=== PATIENT | female | born 1995 | race Caucasian/White ===

== ENCOUNTER 2019-02-21 05:15 | Inpatient (IN) ==
[2019-02-21 06:13] LABS: Pregnancy Test, Urine Negative (Negative)
[2019-02-21 06:23] LABS: Basophils # (auto) 0.04 K/uL (0-0.2); Basophils % (auto) 0.4 %; Eosinophils # (auto) 0.39 K/uL (0-0.5); Eosinophils % (auto) 3.7 %; Hematocrit (blood only) 40.3 % (37-47); Hemoglobin 13.7 g/dL (12.0-16.0); Immature Granulocytes # (auto) 0.03 K/uL (0.00-0.02); Immature Granulocytes % (auto) 0.3 %; Lymphocytes # (auto) 2.26 K/uL (1.2-3.4); Lymphocytes % (auto) 21.3 %; Mean Corpuscular Hemoglobin 28.5 pg (25-34); Mean Platelet Volume 10.1 fL (7.4-10.4); Monocytes # (auto) 0.77 K/uL (0.11-0.59); Monocytes % (auto) 7.2 %; Neutrophils # (auto) 7.14 K/uL (1.4-6.5); Neutrophils % (auto) 67.1 %; Platelet Count 220 K/uL (130-400); RDW Coefficient of Variation 13.2 % (11.5-14.5); RDW Standard Deviation 40.2 fL (36.4-46.3); White Blood Count 10.63 K/uL (4.8-10.8)
[2019-02-21 06:33] LABS: Amphetamines+Metham, Urine Neg (Neg); Barbiturates, Urine Neg (Neg); Benzodiazepine, Urine Neg (Neg); Cocaine, Urine Neg (Neg); MDMA (Ecstacy), Urine Pos (Neg); Methadone, Urine Neg (Neg); Opiate, Urine Neg (Neg); Phencyclidine, Urine Neg (Neg)
[2019-02-21 06:39] LABS: Appearance Urine Clear (Clear); Bacteria Urine Automated 1+ (Negative); Bilirubin Urine Negative (Negative); Blood Urine Negative (Negative); Color Urine Yellow; Epithelial Cell Urine Auto >30 /lpf (0-5); Glucose Urine UA Negative (Negative); Ketones Urine Trace (Negative); Leukocyte Esterase Urine 1+ (Negative); Nitrite Urine Negative (Negative); Protein Urine Negative (Negative); Specific Gravity Urine 1.026 (1.000-1.030); Urobilinogen Urine Negative (Negative); pH Urine 5.5 (4.5-7.5)
[2019-02-21 06:48] LABS: Acetaminophen < 2 ug/ml (10-30); Salicylate < 1.7 mg/dl (2.8-20)
[2019-02-21 06:53] LABS: Albumin Level 3.3 gm/dl (3.4-5.0); BUN Creatinine Ratio 10.9 (10-20); Calcium 8.8 mg/dl (8.5-10.1); Creatinine Clr Calc Pharmacy 95.4 ml/min; Est GFR (African American) 103.8; Est GFR (Non-African American) 89.6; Potassium 3.3 mmol/L (3.5-5.1)
[2019-02-21 07:03] LABS: Bilirubin,Total 0.3 mg/dl (0.2-1); Globulin 3.4 gm/dl (2.5-4.0); Thyroid Stimulating Hormone 2.17 uIu/ml (0.300-4.500); Total Protein 6.7 gm/dl (6.4-8.2)
--- NOTE | 2019-02-21 07:13 | Emergency Department Note ---
Entered by Chato Garrison acting as a scribe for History of Present Illness General Chief complaint: Overdose (Intentional) Stated complaint: OVERDOSE ON MEDICATION Time Seen by Provider: 02/21/19 05:39 Source: patient History of Present Illness Onset (ago): minute(s) 45 Location: head Pain Consistency: + other (an episode) Quality: + other (intentional overdose) Associated symptoms: + other (Positive for mild nausea. Negative for shakiness and abdominal pain.) The patient is a 23 year old female who presents to the emergency department with complaints of an episode of an intentional overdose occurring 45 minutes ago. The patient states that she recently got into an argument with her family. She notes that things escalated, and she reports that she took 15-20 tabs of Wellbutrin XL 45 minutes ago. The patient complains of mild nausea, but she denies any shakiness and abdominal pain. The patient states that she has a history of suicidal ideations, but she notes that she does not have a history of previous overdoses and suicide attempts. She reports that she does not use alcohol and drugs. Home Medications Home Medications Medication Instructions Recorded Confirmed Type bupropion HCl 150 mg PO DAILY 02/21/19 02/21/19 History drospirenone-ethinyl estradiol 1 tab PO DAILY 02/21/19 02/21/19 History Allergies Allergy/AdvReac Type Severity Reaction Status Date / Time No Known Allergies Allergy Unknown Verified 02/21/19 05:39 Past Med/Surg History Surgical History Hx of appendectomy (Resolved) Family History Other No significant family history Social History Preferred Language: Frisian marital status: single current occupational status: employed Feels Safe at Home: Yes Smoking Status: Current some day smoker Hx Alcohol Use: Yes Alcohol type: wine Alcohol Intake Frequency Comment: occasionally Hx Substance Use: No Review of Systems See HPI for pertinent positives & negatives. and A total of 10 systems reviewed and were otherwise negative Physical Exam Vital Signs Vital Signs - 24 hr 02/21/19 05:23 02/21/19 05:32 02/21/19 05:46 Temperature 36.7 C Temperature Source Oral Sepsis Recent Fever Within 48 Hours No Sepsis New/Unexplained Change in Mental Status No Sepsis Action Taken by Nursing No Action Required Pulse Rate 103 H Pulse Rate [Apical] 94 H Pulse Rhythm Regular Pulse Rhythm [Apical] Regular Respiratory Rate 18 19 Respiratory Effort / Characteristics Non-Labored Spontaneous Non-Labored Spontaneous Non-Labored Spontaneous Respiratory Depth Normal Normal Normal Respiratory Pattern Regular Regular Regular Blood Pressure 140/88 Blood Pressure [Right Arm] 145/104 H Blood Pressure Mean 105 Blood Pressure Mean [Right Arm] 117 Blood Pressure Position Sitting Pulse Oximetry 97 98 Oxygen Delivery Method Room Air Room Air 02/21/19 05:47 02/21/19 06:48 Temperature Temperature Source Sepsis Recent Fever Within 48 Hours Sepsis New/Unexplained Change in Mental Status Sepsis Action Taken by Nursing Pulse Rate Pulse Rate [Apical] 78 Pulse Rhythm Pulse Rhythm [Apical] Regular Respiratory Rate 16 Respiratory Effort / Characteristics Non-Labored Spontaneous Respiratory Depth Normal Respiratory Pattern Regular Blood Pressure Blood Pressure [Right Arm] 120/94 Blood Pressure Mean Blood Pressure Mean [Right Arm] 102 Blood Pressure Position Pulse Oximetry 98 97 Oxygen Delivery Method Room Air Room Air HEENT: Head - normocephalic and atraumatic Pupils are equal, round, and reactive to light. Extraocular eye muscles are intact, and sclera are anicteric. Nose - moist nasal mucosa without discharge. Mouth - moist buccal mucosa. Oropharynx is nonerythematous and there is no tonsillar exudate or edema noted. Neck: Supple; no thyromegaly or cervical lymphadenopathy Heart: Regular rhythm and tachycardic. There is a normal S1 and S2 with no murmurs, clicks, or gallops appreciated. Lungs: Clear to auscultation bilaterally with no wheezes, rales, or rhonchi. Abdomen: Soft, completely nontender, nondistended, with good bowel sounds. There are no palpable pulsatile masses or hepatosplenomegaly. There is no guarding, rigidity, or rebound noted. Extremities: No evidence of cyanosis, clubbing, or edema. There are easily palpable peripheral pulses. Skin: warm and dry with good turgor and no rashes. Psych: Tearful, admits to intentions of harming herself. Course 0541: The patient was evaluated in room B4. A complete history and physical exam was performed. An IV lock was initiated and labs were drawn as above. The patient was observed on the garment sewer hand and pulse oximeter. A twelve-lead EKG was obtained. 0556: Nursing spoke to poison control who noted that the patient would need to be admitted for 24 hours as she took the extended release Wellbutrin. 0609: I reevaluated and updated the patient. She remains tachycardic at this time 0704: Upon reevaluation, the patient is stable. I discussed the findings and the treatment plan with the patient. She expresses agreement and understanding. I spoke with Dr. Alcocer of the [facility]. The patient will be evaluated for further management. Consultations Consultation #1: I reviewed the patient's case with Dr. Alcocer - Hospitalist, [facility]. He will evaluate the patient for further management. Time: 07:04 Medical Decision Making Differential Diagnosis Differential diagnosis includes: suicide attempt, intentional overdose, and mood disorder. Medical Records Attestation: I reviewed the patient's medical records. Home Medications Current Medication List: was personally reviewed by me Laboratory Data Attestation: I reviewed the patient's lab results. Result diagrams: 02/21/19 06:14 02/21/19 06:14 Lab Results 02/21/19 02/21/19 02/21/19 Range/Units 05:35 05:35 05:35 WBC (4.8-10.8) K/uL RBC (4.2-5.4) M/uL Hgb (12.0-16.0) g/dL Hct (37-47) % MCV (80-100) fL MCH (25-34) pg MCHC (32-36) g/dL RDW Std Deviation (36.4-46.3) fL RDW Coeff of Sivan (11.5-14.5) % Plt Count (130-400) K/uL MPV (7.4-10.4) fL Immature Gran % (Auto) % Neut % (Auto) % Lymph % (Auto) % [place] % (Auto) % Eos % (Auto) % Baso % (Auto) % Immature Gran # (Auto) (0.00-0.02) K/uL Neut # (Auto) (1.4-6.5) K/uL Lymph # (Auto) (1.2-3.4) K/uL [place] # (Auto) (0.11-0.59) K/uL Eos # (Auto) (0-0.5) K/uL Baso # (Auto) (0-0.2) K/uL Sodium (136-145) mmol/L Potassium (3.5-5.1) mmol/L Chloride (98-107) mmol/L Carbon Dioxide (21-32) mmol/L Anion Gap (3-11) BUN (7-18) mg/dl Creatinine (0.6-1.2) mg/dl Est Cr Clr Drug Dosing ml/min Est GFR ( Amer) Est GFR (Non-Af Amer) BUN/Creatinine Ratio (10-20) Glucose (70-99) mg/dl Calcium (8.5-10.1) mg/dl Total Bilirubin (0.2-1) mg/dl AST (15-37) U/L ALT (12-78) U/L Alkaline Phosphatase (45-117) U/L Total Protein (6.4-8.2) gm/dl Albumin (3.4-5.0) gm/dl Globulin (2.5-4.0) gm/dl Albumin/Globulin Ratio (0.9-2) TSH (0.300-4.500) uIu/ml Urine Color Yellow Urine Appearance Clear (Clear) Urine pH 5.5 (4.5-7.5) Ur Specific [place] 1.026 (1.000-1.030) Urine Protein Negative (Negative) Urine Glucose (UA) Negative (Negative) Urine Ketones Trace H (Negative) Urine Blood Negative (Negative) Urine Nitrite Negative (Negative) Urine Bilirubin Negative (Negative) Urine Urobilinogen Negative (Negative) Ur Leukocyte Esterase 1+ H (Negative) Urine WBC (Auto) 10-30 H (0-5) /hpf Urine RBC (Auto) 5-10 H (0-4) /hpf U Hyaline Cast (Auto) 5-10 H (0-5) /lpf U Epithel Cells (Auto) >30 H (0-5) /lpf Urine Bacteria (Auto) 1+ H (Negative) Urine Test Negative (Negative) Salicylates (2.8-20) mg/dl Urine Opiates Screen Neg (Neg) Ur Methadone, Qual Neg (Neg) Acetaminophen (10-30) ug/ml Urine Barbiturates Neg (Neg) Ur Phencyclidine (PCP) Neg (Neg) U Amphetamin/Meth Scrn Neg (Neg) MDMA (Ecstasy) Screen Pos H (Neg) U Benzodiazepines Scrn Neg (Neg) Ur Cocaine Metabolite Neg (Neg) U Marijuana (THC) Screen Neg (Neg) Ethyl Alcohol mg/dL (0-3) mg/dl 02/21/19 02/21/19 02/21/19 Range/Units 06:14 06:14 06:14 WBC 10.63 (4.8-10.8) K/uL RBC 4.80 (4.2-5.4) M/uL Hgb 13.7 (12.0-16.0) g/dL Hct 40.3 (37-47) % MCV 84.0 (80-100) fL MCH 28.5 (25-34) pg MCHC 34.0 (32-36) g/dL RDW Std Deviation 40.2 (36.4-46.3) fL RDW Coeff of Sivan 13.2 (11.5-14.5) % Plt Count 220 (130-400) K/uL MPV 10.1 (7.4-10.4) fL Immature Gran % (Auto) 0.3 % Neut % (Auto) 67.1 % Lymph % (Auto) 21.3 % [place] % (Auto) 7.2 % Eos % (Auto) 3.7 % Baso % (Auto) 0.4 % Immature Gran # (Auto) 0.03 H (0.00-0.02) K/uL Neut # (Auto) 7.14 H (1.4-6.5) K/uL Lymph # (Auto) 2.26 (1.2-3.4) K/uL [place] # (Auto) 0.77 H (0.11-0.59) K/uL Eos # (Auto) 0.39 (0-0.5) K/uL Baso # (Auto) 0.04 (0-0.2) K/uL Sodium 141 (136-145) mmol/L Potassium 3.3 L (3.5-5.1) mmol/L Chloride 108 H (98-107) mmol/L Carbon Dioxide 27 (21-32) mmol/L Anion Gap 5.0 (3-11) BUN 10 (7-18) mg/dl Creatinine 0.91 (0.6-1.2) mg/dl Est Cr Clr Drug Dosing 95.4 ml/min Est GFR ( Amer) 103.8 Est GFR (Non-Af Amer) 89.6 BUN/Creatinine Ratio 10.9 (10-20) Glucose 114 H (70-99) mg/dl Calcium 8.8 (8.5-10.1) mg/dl Total Bilirubin 0.3 (0.2-1) mg/dl AST 11 L (15-37) U/L ALT 26 (12-78) U/L Alkaline Phosphatase 83 (45-117) U/L Total Protein 6.7 (6.4-8.2) gm/dl Albumin 3.3 L (3.4-5.0) gm/dl Globulin 3.4 (2.5-4.0) gm/dl Albumin/Globulin Ratio 1.0 (0.9-2) TSH 2.170 (0.300-4.500) uIu/ml Urine Color Urine Appearance (Clear) Urine pH (4.5-7.5) Ur Specific [place] (1.000-1.030) Urine Protein (Negative) Urine Glucose (UA) (Negative) Urine Ketones (Negative) Urine Blood (Negative) Urine Nitrite (Negative) Urine Bilirubin (Negative) Urine Urobilinogen (Negative) Ur Leukocyte Esterase (Negative) Urine WBC (Auto) (0-5) /hpf Urine RBC (Auto) (0-4) /hpf U Hyaline Cast (Auto) (0-5) /lpf U Epithel Cells (Auto) (0-5) /lpf Urine Bacteria (Auto) (Negative) Urine Test (Negative) Salicylates < 1.7 L (2.8-20) mg/dl Urine Opiates Screen (Neg) Ur Methadone, Qual (Neg) Acetaminophen < 2 L (10-30) ug/ml Urine Barbiturates (Neg) Ur Phencyclidine (PCP) (Neg) U Amphetamin/Meth Scrn (Neg) MDMA (Ecstasy) Screen (Neg) U Benzodiazepines Scrn (Neg) Ur Cocaine Metabolite (Neg) U Marijuana (THC) Screen (Neg) Ethyl Alcohol mg/dL (0-3) mg/dl 02/21/19 Range/Units 06:14 WBC (4.8-10.8) K/uL RBC (4.2-5.4) M/uL Hgb (12.0-16.0) g/dL Hct (37-47) % MCV (80-100) fL MCH (25-34) pg MCHC (32-36) g/dL RDW Std Deviation (36.4-46.3) fL RDW Coeff of Sivan (11.5-14.5) % Plt Count (130-400) K/uL MPV (7.4-10.4) fL Immature Gran % (Auto) % Neut % (Auto) % Lymph % (Auto) % [place] % (Auto) % Eos % (Auto) % Baso % (Auto) % Immature Gran # (Auto) (0.00-0.02) K/uL Neut # (Auto) (1.4-6.5) K/uL Lymph # (Auto) (1.2-3.4) K/uL [place] # (Auto) (0.11-0.59) K/uL Eos # (Auto) (0-0.5) K/uL Baso # (Auto) (0-0.2) K/uL Sodium (136-145) mmol/L Potassium (3.5-5.1) mmol/L Chloride (98-107) mmol/L Carbon Dioxide (21-32) mmol/L Anion Gap (3-11) BUN (7-18) mg/dl Creatinine (0.6-1.2) mg/dl Est Cr Clr Drug Dosing ml/min Est GFR ( Amer) Est GFR (Non-Af Amer) BUN/Creatinine Ratio (10-20) Glucose (70-99) mg/dl Calcium (8.5-10.1) mg/dl Total Bilirubin (0.2-1) mg/dl AST (15-37) U/L ALT (12-78) U/L Alkaline Phosphatase (45-117) U/L Total Protein (6.4-8.2) gm/dl Albumin (3.4-5.0) gm/dl Globulin (2.5-4.0) gm/dl Albumin/Globulin Ratio (0.9-2) TSH (0.300-4.500) uIu/ml Urine Color Urine Appearance (Clear) Urine pH (4.5-7.5) Ur Specific [place] (1.000-1.030) Urine Protein (Negative) Urine Glucose (UA) (Negative) Urine Ketones (Negative) Urine Blood (Negative) Urine Nitrite (Negative) Urine Bilirubin (Negative) Urine Urobilinogen (Negative) Ur Leukocyte Esterase (Negative) Urine WBC (Auto) (0-5) /hpf Urine RBC (Auto) (0-4) /hpf U Hyaline Cast (Auto) (0-5) /lpf U Epithel Cells (Auto) (0-5) /lpf Urine Bacteria (Auto) (Negative) Urine Test (Negative) Salicylates (2.8-20) mg/dl Urine Opiates Screen (Neg) Ur Methadone, Qual (Neg) Acetaminophen (10-30) ug/ml Urine Barbiturates (Neg) Ur Phencyclidine (PCP) (Neg) U Amphetamin/Meth Scrn (Neg) MDMA (Ecstasy) Screen (Neg) U Benzodiazepines Scrn (Neg) Ur Cocaine Metabolite (Neg) U Marijuana (THC) Screen (Neg) Ethyl Alcohol mg/dL < 3.0 (0-3) mg/dl ECG Data Attestation: I personally reviewed and interpreted this ECG as follows: Indication: toxicologic Rate (beats per minute): 86 Rhythm: normal sinus Findings: no PAC, no PVC, no ST depression and no ST elevation Additional Comments: QTC 442ms. Blood Pressure Blood Pressure Findings: Elevated blood pressure Blood Pressure Disposition: further management by hospitalist MDM Narrative The patient is a 23 year old female who presents to the emergency department with complaints of an episode of an intentional overdose occurring 45 minutes ago. The patient suffers from depression. She was seen here exactly 1 month ago with complaints of depression and suicidal thoughts. At that time, she was evaluated by the ED psychiatric manager of case management and decided that she would go home to pursue outpatient treatment. The patient has been seen by her PCP but has not yet been set up for outpatient psychiatric treatment. She describes having increased depression and had an argument with her family which pushed her to overdose on Wellbutrin with the intent to harm herself. Because of the extended release form of the medication, the patient will need admission to the medical service for observation as she is at risk for increased tachycardia and seizures. The patient is hemodynamically stable. I discussed the case with Dr. Alcocer and they will evaluate for further management. Once she is medically cleared, the patient will require inpatient psychiatric care for suicidal ideation and attempt. Impression & Plan Overdose, Depression Discharge Plan Visit Data Chief Complaint: Overdose (Intentional) Stated Complaint: OVERDOSE ON MEDICATION ED Provider: Shirley Arshad Discharge Problem: Overdose, Depression Patient Disposition: Admitted As Inpatient Forms Stand Alone Forms: My [facility] Prescriptions Prescriptions: No Action bupropion HCl 150 mg tablet extended release 24 hr 150 mg PO DAILY RF: 0 drospirenone-ethinyl estradiol 3-0.02 mg tablet 1 tab PO DAILY RF: 0 Referrals Referrals: Anneliese Nieves DO [Primary Care Provider] - Discharge Problem: Overdose Qualifiers: Encounter type: initial encounter Injury intent: intentional self-harm Qualified Code(s): T50.902A - Poisoning by unspecified drugs, medicaments and biological substances, intentional self-harm, initial encounter Depression Qualifiers: Depression Type: unspecified Qualified Code(s): F32.9 - Major depressive diso rder, single episode, unspecified The scribe's documentation has been prepared under my direction and personally reviewed by me in its entirety. I confirm that the note above accurately ref lects all work, treatment, procedures, and medical decision making performed by me.
--- NOTE | 2019-02-21 08:31 | History & Physical Report ---
Date of Service February 21, 2019 Assessment & Plan (1) Overdose: Joleen is a 23-year-old female with a past medical history of depression and anxiety, with prior suicidal ideation who presented to [facility] due to having intentionally taken 15-20 150 mg tablets of extended release Wellbutrin at approximately 5 AM. -admit to telemetry for monitoring -ED discussed case w/poison control -> recommend 24h monitoring given Wellbutrin is extended release. -monitor for seizures, prolonged Qtc and cardiac arrhythmia -> EKG in ED shows sinus rhythm, and QTc of 442 -suicide and seizure precautions, 1:1 observation -> 1mg IV Ativan prn seizures ordered -psych consult placed, can transfer to inpatient psych after 24h of monitoring -patient intermittently tachycardic to 120s, repeat EKG revealed sinus tachycardia - suspect related to wellbutrin -Ativan 0.5mg PO q4h prn anxiety -urine drug screen positive for MDMA (likely due to Wellbutrin) - otherwise negative Depression & Anxiety -hold Wellbutrin -psych consult as above - pt would likely benefit from an SSRI -pt has good support w/fiance -per discussion w/patient, her family seems to be her major source of stress Hypokalemia -potassium 3.3 on admission, will replete with 40 mEq of potassium chloride Positive UA -positive for leukocyte esterases, WBC, epithelial cells and bacteria. Urine cx ordered -pt does have a hx of UTIs, but is asymptomatic - will not treat Code status: FULL DVT Prophylaxis: Low risk, encourage ambulation Disposition: admit to telemetry for monitoring (2) Depression: (3) Anxiety: (4) Positive urinary cytology: (5) Hypokalemia: History of Present Illness Chief Complaint: Intentional Overdose Primary Care Provider: Anneliese Nieves DO Joleen is a 23-year-old female with a past medical history of depression and anxiety, with prior suicidal ideation who presented to [facility] due to having intentionally taken 15-20 150 mg tablets of extended release Wellbutrin at approximately 5 AM. 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 She states that she has a tumultuous relationship with her family, and that they have had several disagreements in the past. She does have a good relationship with her fiya, who she states is very supportive. She states that she took the Wellbutrin in a moment of haste, immediately realized what she had done, and told her fianc who then drove her to the hospital. She states that apart from nausea, she feels well. She did report one brief episode half an hour prior to the time of my examination where she had a 5-minute episode of chest pain, over the left side of her chest, associated with trouble breathing and feeling shaky. She states she was feeling particularly anxious at that time. She denies palpitations at that time. She states that she has not had chest pain since. She denies feeling dizzy or lightheaded. Of note, she is currently unwell with a viral URI, resulting in nasal congestion and a cough. She has had no fevers or chills. She has no prior history of any seizures. She states that her depression and anxiety are long-standing, and she has been struggling with this since her early teens. She stated that in the past, she has had suicidal ideation, with plans to harm herself. She was seen in the emergency department 1 month ago for this, however did not actively carry out on her plan at that time. She was meant to follow-up with your primary care provider and see a counselor and psychiatrist after her last ED visit, however she notes that there was a 3-month wait to see psychiatry. She states that her primary care provider started her on Wellbutrin, which she has been on for the last 10 to 15 days. She states that it has not made a difference for her anxiety and depression, and she reports having trouble sleeping and feeling jittery. PMHx: Depression, anxiety PSHx: Appendectomy Meds: Wellbutrin 150 mg, OCP Allergies: No known drug allergies SHx: Tried marijuana once last month, has not used it since. No other recreational drugs. Drinks alcohol once a month. Non-smoker. Allergies Allergy/AdvReac Type Severity Reaction Status Date / Time No Known Allergies Allergy Unknown Verified 02/21/19 05:39 Home Medications Home Medications Medication Instructions Recorded Confirmed Type bupropion HCl 150 mg PO DAILY 02/21/19 02/21/19 History drospirenone-ethinyl estradiol 1 tab PO DAILY 02/21/19 02/21/19 History Past Med/Surg History Medical History Contusion of foot (Acute) Depression (Chronic) Acute bronchitis (Acute) Urinary tract infection (Acute) Surgical History Hx of appendectomy (Resolved) Family History Other No significant family history Social History Preferred Language: Qatari Communication Ability: Effective Beliefs That Will Affect Care: None marital status: single Current Living Situation: Significant Other current occupational status: employed Other Information That Helps Us Care for You: No Feels Safe at Home: Yes Safety Concerns: Feels Safe At This Time Smoking Status: Current some day smoker Tobacco Type: cigarettes ; Cigarettes Per Day: FEW MONTH ; Hx Alcohol Use: Yes Alcohol type: wine Alcohol Intake Frequency Comment: occasionally Hx Substance Use: No Review of Systems Constitutional: no fever, no chills and no fatigue Ear, Nose, Mouth, Throat: + nasal congestion; no sore throat Respiratory: + cough; no dyspnea and no wheezing Cardiovascular: + chest pain; no radiating jaw, neck or arm pain, no palpitations, no lightheadedness, no syncope, no edema and no calf pain Gastrointestinal: + nausea; no abdominal pain and no vomiting Genitourinary: no dysuria, no urinary frequency and no urinary urgency Psychiatric: + depression and + anxiety; no suicidal ideation Physical Exam Constitutional: WD/WN, vitals as above healthy appearing Eyes: PERRL, conjunctivae normal, anicteric sclerae ENMT: external ear and nose normal, oropharynx normal Respiratory: normal respiratory effort, lungs clear to auscultation Cardiovascular: RRR, no murmur, no edema Gastrointestinal (Abdomen): normal bowel sounds, soft, nontender, no hepatosplenomegaly Skin: no rashes, warm and dry Neurologic: Cranial nerves 2-12 grossly normal Power 5/5 in UE and LE Coordination intact Psychiatric: Orientation: alert and oriented x 3 Apperance: appropriately dressed, appropriately groomed and appeared stated age Eye Contact: good eye contact Speech: normal rate/rhythm/volume of speech Affect: + tearful affect Thought Process: clear/coherent thought process Suicidal Thoughts: denies suicidal thoughts Insight: excellent insight Judgement: good judgement Results & Data Vital Signs (Past 12 Hours) Vital Signs Temp Pulse Pulse Resp BP BP Pulse Ox 02/21/19 08:12 93 H 16 137/89 97 02/21/19 07:30 93 H 18 108/76 99 02/21/19 07:00 103 H 18 120/87 99 02/21/19 06:48 78 16 120/94 97 02/21/19 05:47 98 02/21/19 05:46 94 H 19 145/104 H 98 02/21/19 05:23 36.7 C 103 H 18 140/88 97 Code Status & VTE Plan VTE Prophylaxis Plan VTE Prophylaxis will be ordered: No Supervising Physician Co-Signing Physician Notes I personally examined the patient and verified all andersen points of history and exam, discussed case, and agree with decision making with Dr Rosa. anxious, had family issues this AM. took excess wellbutrin - immediately regretted and came to hospital for help. discussed life stressors vitals noted, anxious, no pain or respiratory distress. heent nc at mmm. breathing unlabored no accessory muscles. skin no rashes no pallor or icterus wellbutrin overdose - supportive care, telemetry, seizure precautions, time. (late addendum, persistently tachycardic, still appearing sinus. no delta wave - will give small amount of metoprolol given persistent 140's type ranges). p sych consult otherwise as above PG Care Time/CCT Total # of Minutes Spent Total Time Spent with Patient: Total time spent is greater than 50% in coordination of care (as documented) at patient's floor/unit and/or counseling patient: Resident Activity Tracking Resident Involvement: Resident Care Provided Care Provided: Adult Hospital Medicine (1) Depression Depression Type: unspecified Qualified Code(s): F32.9 - Major depressive disorder, single episode, unspecified (2) Overdose Encounter type: initial encounter Injury intent: intentional self-harm Qualified Code(s): T50.902A - Poisoning by unspecified drugs, medicaments and biological substances, intentional self-harm, initial encounter
[2019-02-21] MEDS ORDERED: LORazepam 0.5 MG TAB PO STA (08:54)
[2019-02-21] MEDS ORDERED: POTASSIUM CHLORIDE 20 MEQ TABCR PO ONE (09:38)
[2019-02-21] MEDS ORDERED: ACETAMINOPHEN 325 MG TAB PO PRN (09:38)
[2019-02-21] MEDS ORDERED: LORazepam 0.5 MG TAB PO PRN (09:38)
[2019-02-21] MEDS ORDERED: LORazepam 1 MG/2 ML VIAL IV PRN (09:38)
[2019-02-21] MEDS ORDERED: FAMOTIDINE 20 MG TAB PO PRN (11:57)
[2019-02-21] MEDS: PROMETHAZINE HCL 12.5 MG in SODIUM CHLORIDE 0.9% 50 ML IV PRN ×2 (12:29→17:24)
--- NOTE | 2019-02-21 13:35 | Psychiatric Consultation ---
Date of Consultation February 21, 2019 Impression / Recommendations Impression 23 yo female with no prior suicide attempts who presents with atypical depressive response to Wellbutrin and impulsive suicide attempt. There is a family history of bipolar disorder but she does not meet criteria. 1. continue 1-on-1 pending medical clearance, inpatient psychiatric hospitalization is recommended, patient should not be allowed to leave the hospital AMA. Patient and her boyfriend are currently agreeable to inpatient stay and expressed preference for [facility]. 2. agree with prn benzo for myoclonus from Wellbutrin Risk Factors Assessment Do You Have Access To A Gun?: No Psych History Identifying Data 23 yo female lives with boyfriend in [place], came to ED this am after ingesting 15-10 Wellbutrin 150 mg XL around 5 am. Chief Complaint "I'm scared, pretty uncomfortable". History of Present Illness On presentation to the ED she states she's been stressed about her mood and wanting to attend nursing school but being unable to due to financial difficulties. The trigger today was an argument she had with her mother. She impulsively took the pills as in the moment didn't want to live but immediately felt regretted it, told boyfriend, and came to the ED. She developed some nausea and chest discomfort. She reconfirmed that she has no prior history of seizures. She denies previous attempts but she had SI and was seen in ED 1 month ago and is waitlisted for psychiatry. Her boyfriend of 9 years states that in past 3 months (on Wellubtrin) she's seemed to have more mood swings from very happy to very low, sometimes irritable at work (per patient). She has been waking up more at night but notes low energy. They deny symptoms of davie. Past Psychiatric History Previous Psych History: states none, I believe she was seen in consultation at [facility] as a teen as Dr. Reno treated her brothers, records not available given remote date, may have refused medication at that time. Current Psychiatric Diagnosis: major depressive disorder, generalized anxiety Outpatient Services: none Previous Psych Admissions: none Do You Have Access To A Gun?: No History of Previous Suicide Attempt: No Past Medication Trials: denied Allergies Allergy/AdvReac Type Severity Reaction Status Date / Time No Known Allergies Allergy Unknown Verified 02/21/19 05:39 Home Medications Home Medications Medication Instructions Recorded Confirmed Type bupropion HCl 150 mg PO DAILY 02/21/19 02/21/19 History drospirenone-ethinyl estradiol 1 tab PO DAILY 02/21/19 02/21/19 History Family History mother bipolar, brother ADHD, another brother autism Substance Abuse History used MJ once a month ago, no other occasional drink with boyfriend Personal History Living Arrangements: Apartment Highest Grade Completed: High School Graduate (started nursing school) 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 Other Number Of Children: 0 Beliefs That Will Affect Care: None History of Legal Problems: denied Psychological Trauma History Comment: denied, reports recent move was stressful. Patient History Medical History Contusion of foot (Acute) Depression (Chronic) Acute bronchitis (Acute) Urinary tract infection (Acute) Surgical History Hx of appendectomy (Resolved) Family History Other No significant family history Social History Preferred Language: Hungarian Communication Ability: Effective Beliefs That Will Affect Care: None marital status: single Current Living Situation: Significant Other current occupational status: employed Other Information That Helps Us Care for You: No Feels Safe at Home: Yes Safety Concerns: Feels Safe At This Time Smoking Status: Current some day smoker Tobacco Type: cigarettes ; Cigarettes Per Day: FEW MONTH ; Hx Alcohol Use: Yes Alcohol type: wine Alcohol Intake Frequency Comment: occasionally Hx Substance Use: No Physical Exam Psychiatric: Orientation: alert Apperance: + disheveled Eye Contact: + poor eye contact Motor Behavior: + tremor (and myoclonus related to Wellbutrin OD) Speech: normal rate/rhythm/volume of speech Affect: + depressed affect Mood: + depressed mood Thought Process: goal directed thought process Thought Content: reality based without delusions Suicidal Thoughts: denies suicidal thoughts and denies suicidal plan Homicidal Thoughts: denies homicidal thoughts and denies homicidal plan Hallucinations: no auditory hallucinations and no visual hallucinations Cognition: attention grossly intact and language grossly intact Estimated Intelligence: average estimated intelligence Insight: + limited insight Judgement: + limited judgement Vital Signs (Past 24 Hours): Last Vital Signs Temp 36.8 C 02/21/19 11:55 Pulse 133 H 02/21/19 11:55 Resp 18 02/21/19 11:55 BP 123/85 02/21/19 11:55 Pulse Ox 95 02/21/19 11:55 Review of Systems All systems reviewed & are unremarkable except as noted in HPI & below Results & Data Medications Administered Promethazine HCl 12.5 mg/ (Sodium Chloride) 50.5 mls @ 202 mls/hr IV Q4H PRN PRN Reason: Nausea And Vomiting Stop: 03/23/19 11:56 Last Infusion: 02/21/19 12:44 Dose: 0 mls/hr Documented by: [id number] Admin: 02/21/19 12:29 Dose: 202 mls/hr Documented by: [id number]
[2019-02-21] MEDS ORDERED: METOPROLOL TARTRATE 25 MG TAB PO SCH (19:45)
[2019-02-21] MEDS: DROSPIRENONE PO SCH (19:46)
[2019-02-21] MEDS: ETHINYL ESTRADIOL PO SCH (19:46)
--- NOTE | 2019-02-22 06:52 | Family Medicine Progress Note ---
Date of Service February 22, 2019 Assessment & Plan (1) Overdose: Joleen is a 23-year-old female with a past medical history of depression and anxiety, with prior suicidal ideation who presented to [facility] due to having intentionally taken 15-20 150 mg tablets of extended release Wellbutrin at approximately 5 AM. -admit to telemetry for monitoring -ED discussed case w/poison control -> recommend 24h monitoring given Wellbutrin is extended release. -monitor for seizures, prolonged Qtc and cardiac arrhythmia -> EKG in ED shows sinus rhythm, and QTc of 442 -suicide and seizure precautions, 1:1 observation -> 1mg IV Ativan prn seizures ordered -psych consult placed, can transfer to inpatient psych after 24h of monitoring -patient intermittently tachycardic to 120s, repeat EKG revealed sinus tachycardia - suspect related to wellbutrin -Ativan 0.5mg PO q4h prn anxiety -urine drug screen positive for MDMA (likely due to Wellbutrin) - otherwise negative Depression & Anxiety -hold Wellbutrin -psych consult as above - pt would likely benefit from an SSRI -pt has good support w/fiance -per discussion w/patient, her family seems to be her major source of stress Hypokalemia -potassium 3.3 on admission, will replete with 40 mEq of potassium chloride Positive UA -positive for leukocyte esterases, WBC, epithelial cells and bacteria. Urine cx ordered -pt does have a hx of UTIs, but is asymptomatic - will not treat Code status: FULL DVT Prophylaxis: Low risk, encourage ambulation Disposition: admit to telemetry for monitoring (2) Depression: (3) Anxiety: (4) Positive urinary cytology: (5) Hypokalemia: Physical Exam Constitutional: WD/WN, vitals as above healthy appearing Respiratory: normal respiratory effort, lungs clear to auscultation Cardiovascular: RRR, no murmur, no edema Gastrointestinal (Abdomen): normal bowel sounds, soft, nontender, no hepatosplenomegaly Skin: no rashes, warm and dry Psychiatric: Orientation: alert and oriented x 3 Results & Data Vital Signs (Past 12 Hours) Vital Signs Temp Pulse Pulse Resp BP Pulse Ox 02/22/19 03:05 36.5 C 106 H 20 103/51 L 98 02/22/19 00:04 105 H 02/21/19 23:36 37.0 C 110 H 18 124/89 97 02/21/19 19:03 36.5 C 146 H 20 126/84 97 PG Care Time/CCT Total # of Minutes Spent Total Time Spent with Patient: Total time spent is greater than 50% in coordination of care (as documented) at patient's floor/unit and/or counseling patient: Resident Activity Tracking Resident Involvement: Resident Care Provided Care Provided: Adult Hospital Medicine (1) Overdose Encounter type: initial encounter Injury intent: intentional self-harm Qualified Code(s): T50.902A - Poisoning by unspecified drugs, medicaments and biological substances, intentional self-harm, initial encounter (2) Depression Depression Type: unspecified Qualified Code(s): F32.9 - Major depressive disorder, single episode, unspecified
[2019-02-22 07:11] LABS: BUN Creatinine Ratio 9.8 (10-20); Calcium 8.8 mg/dl (8.5-10.1); Creatinine Clr Calc Pharmacy 99.3 ml/min; Est GFR (African American) 121.3; Est GFR (Non-African American) 104.7; Potassium 3.9 mmol/L (3.5-5.1)
--- NOTE | 2019-02-22 07:56 | Discharge Summary ---
Date of Service February 22, 2019 Admission HPI Per Admitting Provider Joleen is a 23-year-old female with a past medical history of depression and anxiety, with prior suicidal ideation who presented to [facility] due to having intentionally taken 15-20 150 mg tablets of extended release Wellbutrin at approximately 5 AM. 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 She states that she has a tumultuous relationship with her family, and that they have had several disagreements in the past. She does have a good relationship with her fianc, who she states is very supportive. She states that she took the Wellbutrin in a moment of haste, immediately realized what she had done, and told her fianc who then drove her to the hospital. She states that apart from nausea, she feels well. She did report one brief episode half an hour prior to the time of my examination where she had a 5-minute episode of chest pain, over the left side of her chest, associated with trouble breathing and feeling shaky. She states she was feeling particularly anxious at that time. She denies palpitations at that time. She states that she has not had chest pain since. She denies feeling dizzy or lightheaded. Of note, she is currently unwell with a viral URI, resulting in nasal congestion and a cough. She has had no fevers or chills. She has no prior history of any seizures. She states that her depression and anxiety are long-standing, and she has been struggling with this since her early teens. She stated that in the past, she has had suicidal ideation, with plans to harm herself. She was seen in the emergency department 1 month ago for this, however did not actively carry out on her plan at that time. She was meant to follow-up with your primary care provider and see a counselor and psychiatrist after her last ED visit, however she notes that there was a 3-month wait to see psychiatry. She states that her primary care provider started her on Wellbutrin, which she has been on for the last 10 to 15 days. She states that it has not made a difference for her anxi ety and depression, and she reports having trouble sleeping and feeling jittery. PMHx: Depression, anxiety PSHx: Appendectomy Meds: Wellbutrin 150 mg, OCP Allergies: No known drug allergies SHx: Tried marijuana once last month, has not used it since. No other recreational drugs. Drinks alcohol once a month. Non-smoker. Admission Exam Per Admitting Provider Constitutional: WD/WN, vitals as above healthy appearing Eyes: PERRL, conjunctivae normal, anicteric sclerae ENMT: external ear and nose normal, oropharynx normal Respiratory: normal respiratory effort, lungs clear to auscultation Cardiovascular: RRR, no murmur, no edema Gastrointestinal (Abdomen): normal bowel sounds, soft, nontender, no hepatosplenomegaly Skin: no rashes, warm and dry Neurologic: Cranial nerves 2-12 grossly normal Power 5/5 in UE and LE Coordination intact Psychiatric: Orientation: alert and oriented x 3 Apperance: appropriately dressed, appropriately groomed and appeared stated age Eye Contact: good eye contact Speech: normal rate/rhythm/volume of speech Affect: + tearful affect Thought Process: clear/coherent thought process Suicidal Thoughts: denies suicidal thoughts Insight: excellent insight Judgement: good judgement Principal Diagnosis Wellbutrin Overdose Discharge Exam Constitutional WD/WN, vitals as above healthy appearing Respiratory normal respiratory effort, lungs clear to auscultation Cardiovascular RRR, no murmur, no edema Gastrointestinal (Abdomen) normal bowel sounds, soft, nontender, no hepatosplenomegaly Psychiatric Orientation: alert and oriented x 3 Discharge Data Allergies Allergy/AdvReac Type Severity Reaction Status Date / Time No Known Allergies Allergy Unknown Verified 02/21/19 05:39 Consultations 02/21/19 09:38 Consult Psychiatry Routine Hospital Course (1) Overdose: Joleen is a 23-year-old female with a past medical history of depression and anxiety, with prior suicidal ideation who presented to [facility] due to having intentionally taken 15-20 150 mg tablets of extended release Wellbutrin at approximately 5 AM. -admitted to telemetry for monitoring -drug screen positive for MDMA (likely due to Wellbutrin) - otherwise negative -case was discussed w/poison control -> recommended 24h monitoring for seizures, prolonged qtc and cardiac arrhythmias given Wellbutrin is extended release. -> EKG in ED showed sinus rhythm, and QTc of 442 -no seizure like activity noted -patient was intermittently tachycardic to 120s, repeat EKG revealed sinus tachycardia - suspect related to wellbutrin -> improved with ativan 0.5mg prn and one dose of 12.5mg of metoprolol tartrate -given patient was stable for >24h under observation, she was deemed medically stable for transfer to inpatient psych unit Depression & Anxiety -d/c Wellbutrin -inpatient psych as above -pt has good support w/fiance -per discussion w/patient, her family seems to be her major source of stress Hypokalemia -potassium 3.3 on admission, repleted Positive UA -positive for leukocyte esterases, WBC, epithelial cells and bacteria. -pt does have a hx of UTIs, but is asymptomatic - will not treat (2) Depression: (3) Anxiety: (4) Positive urinary cytology: (5) Hypokalemia: Total Time Total Time Spent Total Time Spent (In Minutes): 30 Discharge Plan Discharge Items Patient Disposition: Transfer Behavioral Health Fac Reason For Visit: INTENTIONAL MEDICATION OVERDOSE Discharge Diagnosis: Wellbutrin Overdose Discharge Goals: Improve disease control and Improve function Activity: Resume your previous activity Non-emergency contact: Primary Care Provider Call non-emergency contact if: you have any medication questions, your symptoms worsen and you have a fever Follow-up/Referrals: Anneliese Nieves DO [Primary Care Provider] - Diet: Regular Addtl Provider Instructions: elba Goodrich were seen at [facility] for monitoring after taking extra tablets of your Wellbutrin. We monitored you for over 24 hours and feel that you are safe to be discharged from a medical standpoint. Please stop taking your Wellbutrin. The psychiatry team will work with you to find a treatment regimen that works for you. Please follow up with your primary care provider. Good luck with everything - we have no doubts you will do really well at nursing school! If you have episodes in the future where you feel overwhelmed or feel like you want to harm yourself, please seek medical attention. Prescriptions: Continued drospirenone-ethinyl estradiol 3-0.02 mg tablet 1 tab PO DAILY RF: 0 Discontinued bupropion HCl 150 mg tablet extended release 24 hr 150 mg PO DAILY RF: 0 No Action bupropion HCl [Wellbutrin XL] 150 mg Tablet Extended Release 24 Hr 150 mg PO QAM RF: 0 omeprazole 40 mg Capsule,Delayed Release(Dr/Ec) 40 mg PO DAILY RF: 0 sucralfate 1 gram Tablet 1 g PO ACHS RF: 0 Stand-Alone Forms: [facility] Discharge Orders: Discharge Order (Routine); Ordered 02/22/19 Ordered By: Isrrael Coleman Admission Data Admit Date/Time: 02/21/19 08:24 Attending Provider: Chetan Santamaria Admit Provider: Chetan Santamaria Primary Care Provider: Anneliese Nieves Other Providers: Edie Reno Service: Telemetry Other Interventions: Discharge Summary Assessment (RN) Last Done: 02/22/19 12:01 DC Date/Time DO NOT enter until pt leaves facility: 02/22/19 12:23 Supervising Physician Co-Signing Physician Notes I personally examined the patient and verified all andersen points of history and exam, discussed case, and agree with decision making with Dr Coleman. Feeling better. Just anxious. Is ready to go to inpatient psych. Vitals noted, in general she is awake and alert pleasant no distress. HEENT normocephalic atraumatic mucous membranes moist. Breathing unlabored no accessory muscle use good effort. Skin shows no rashes no pallor or icterus. Mental status she is pleasant but tearful. Mildly anxious. Wellbutrin overdosenow doing much better. No seizures. Was briefly tachycardic managed with a very low dose of metoprolol. Stable for inpatient psych. Offered empathy and support. Resident Activity Tracking Resident Involvement: Resident Care Provided Care Provided: Adult Hospital Medicine
[2019-02-22] MEDS: DROSPIRENONE PO SCH (10:23)
[2019-02-22] MEDS: ETHINYL ESTRADIOL PO SCH (10:23)
== END 2019-02-22 12:23 | DRG 918 ==
LOC: ED 05:15 → 2S 08:24

== ENCOUNTER 2019-02-22 12:28 | Inpatient (IN) ==
[2019-02-22] MEDS ORDERED: MAGNESIUM HYDROXIDE SUSP 30 ML UDC PO PRN (12:48)
[2019-02-22] MEDS ORDERED: BISMUTH SUBSALICYLATE PER ML OMNICELL CHARGE PO PRN (12:48)
[2019-02-22] MEDS ORDERED: SODIUM CHLORIDE 0.65% NA SOLN 45 ML (OCEAN) PRN (12:48)
[2019-02-22] MEDS ORDERED: ALUMINUM/MAGNESIUM SUSP 30 ML UDC PO PRN (12:48)
[2019-02-22] MEDS ORDERED: ACETAMINOPHEN 325 MG TAB PO PRN (12:48)
--- NOTE | 2019-02-22 13:02 | History & Physical ---
Date of Service February 22, 2019 Impression / Recommendations (1) Overdose: 02/22 -patient reports intentional, impulsive overdose on bupropion XL in a suicide attempt, in the context of an argument with her mother. She has medically stabilized after treatment on telemetry. -Work on healthy coping skills, communication, and conflict resolution, as the patient identifies these as her primary needs. -Work on discharge safety plan, and hold family meeting with boyfriend to discuss. Given persistent suicidal ideation and now in attentional overdose, would recommend basic safety measures including that all medications in the home are locked and secured, and confirm with boyfriend that firearms are secure and the patient cannot access them. Encounter type: initial encounter Injury intent: intentional self-harm Qualified Code(s): T50.902A - Poisoning by unspecified drugs, medicaments and biological substances, intentional self-harm, initial encounter Present on Admission?: Yes (2) Depression: 02/22 -discussed diagnosis, including that although the patient does not meet criteria for hypomania or davie, she does seem to have an atypical depression and felt more meza on sertraline and bupropion XL (although thinks she had a good response to them when she took both of these medications as a teenager). She does have a family history of bipolar disorder in her mother. -Wellbutrin discontinued on the medical floor status post overdose. Will not resume, as worsened mood. -Discussed other medication options, including a trial of a different SSRI such as escitalopram, or a trial of a mood stabilizer (specifically discussed lamotrigine). At this time, she is not sure whether she wants to try another medication, but we will continue to discuss and educate. -Patient psychiatric care and therapy. Depression Type: unspecified Qualified Code(s): F32.9 - Major depressive disorder, single episode, unspecified Present on Admission?: Yes (3) Anxiety: 02/22 -hydroxyzine as needed for anxiety that does not respond to behavioral/relaxation techniques. -Discussed medication options including SSRI as above and buspirone. Patient does not wish to start any medications now, but will think about it. Present on Admission?: Yes (4) Positive urinary cytology: 02/22 -UDS with trace ketones, 1+ leukocyte esterase, 10-30 white blood cells, 5-10 red blood cells, > 30 epithelial cells, and 1+ bacteria.Preliminary culture results showed pinpoint growth; re-incubating. Asymptomatic so treatment not indicated. Follow-up on culture results. Present on Admission?: Yes (5) Hypokalemia: 02/22 -potassium was 3.3 on admission, but improved to 3.9 today. Encourage good nutrition. Present on Admission?: Yes Inventory Assets Strengths: Stable housing, employed Needs: Healthy coping skills, outpatient treatment Risk Factors Assessment Male: No : Yes Do You Have Access To A Gun?: No (BF has guns but they are locked and she doesn't have access) Health Problems: No Mental Health Diagnoses: Yes Substance Use Disorders: No Previous Attempt: No Family History of Suicide: No Previous Psychiatric Hospitalization: No Hopelessness: No Smoker: No Protective Factors Assessment Adventist Beliefs: No : No Responsible for Young Children: No Employed: Yes Stable Relationships: Yes Supportive Family: Yes Good Rapport with Provider: Yes Psychiatric History Identifying Data SONIYA FREEDMAN is a 23-year-old F who currently lives in [place], has a history of depression treated by her PCP, and was admitted on 02/22/2019 on a 201 voluntary commitment for an overdose on Wellbutrin. Chief Complaint "[]". History of Present Illness The patient initially presented to the ER 02/21/2019 after overdosing on 15-20 tablets of bupropion XL about 45 minutes prior. This occurred after an argument with her family, and she said that she intended to harm herself. Her drug screen was positive for MDMA and UA showed trace ketones, 1+ leukocyte esterase, 10-30 white cells, 5-10 red cells, >30 epithelial cells, and 1+ bacteria. Culture showed pinpoint growth and is re-incubating. Labs otherwise unremarkable. EKG showed sinus tachycardia with a rate of 116 and QTC of 467. She was admitted to telemetry for cardiac monitoring, and seen by Dr. watkins on the psychiatry consult service yesterday. She reported recent stress including wanting to attend nursing school, but unable due to financial barriers. She had an argument with her mother prior to presentation and impulsively took the overdose to end her life, but immediately regretted it, told her boyfriend, and came to the ER. She experienced nausea and chest discomfort. Her boyfriend of 9 years was present and stated that in the past 3 months she has had more mood swings between happy, low, and irritable. Sleep has been disrupted, and energy low. She was also seen in our ER on 01/21/2019 for worsening depression and suicidal ideation with a plan to overdose on NyQuil. She initially expressed an interest in inpatient treatment, but changed her mind and was discharged home. She planned to stay with her mother who was going to arrange outpatient treatment. On my assessment today, she was seen with Chetan Joya, MS2 and Leodan Saxena MS2, with her permission. She reports no psychiatric history until about a month and a half ago, when she went to her PCP and was started on Wellbutrin XL. She is not sure what she was diagnosed with. She reports worsening mood for months, with low mood, crying spells, disrupted sleep, low energy, decreased appetite with 15-20lb weight loss in the past 3 months. She also reports anxiety which she describes as "get worked up," and thinks this leads to depression. She describes chest pain and SOB, racing thoughts, and feeling on edge which occurs daily. Describes herself as a worrier and "always an anxious kid." Worries about finances and "stability in general" as her family was homeless a lot when she was growing up and she doesn't want this to happen. Other stressors include that her father left the family years ago due to his addictions, although he is now working on it and they are talking; increased work responsibilities bank, and financial concerns. She reports suicidal thoughts which worsened over the past month and a half, with thoughts to overdose. She notes that her overdose was impulsive and occurred in the context of an argument with her mother whom she describes as unstable and difficult. Patient had previously been living with mother and and was contributing financially, but can no longer afford to do that as moved in with boyfriend 4 months ago. Notes mother also doesn't like her boyfriend. She doesn't think she would try to hurt herself again as her experience yesterday (how she felt after the OD) "was terrible." Has now had 2 antidepressant trials as an adult, and both times felt moods were more unstable. Prior to starting meds, reports mild mood swings, now feels "upset over everything." Denies manic symptoms, other than irritability, often at work or with boyfriend. Denies anger outbursts, but reports "getting angry" and "shutting down, want to be left alone." Denies panic attacks, OCD symptoms, hallucinations, PTSD symptoms. Denies h/o self injury. Past Psychiatric History Outpatient Services: Patient denies seeing a psychiatrist before. PCP, Dr. Anneliese Nieves, has been prescribing medication. H/o in home therapy as a teen which she liked. Previous Psych Admissions: Denies Do You Have Access To A Gun?: No (BF has guns but they are locked and she doesn't have access) History of Previous Suicide Attempt: No Past Medication Trials: Zoloft - prescribed by PCP 2 years ago, but mood was more unstable Wellbutrin XL - PCP for past 1.5 months, mood more unstable, sleep impaired Tried both these meds as a teen and tolerated them well Allergies Allergy/AdvReac Type Severity Reaction Status Date / Time No Known Allergies Allergy Unknown Verified 02/21/19 05:39 Home Medications Home Medications Medication Instructions Recorded Confirmed Type drospirenone-ethinyl estradiol 1 tab PO DAILY 02/21/19 02/21/19 History bupropion HCl [Wellbutrin XL] 150 mg PO QAM 02/22/19 02/22/19 History omeprazole 40 mg PO DAILY 02/22/19 02/22/19 History sucralfate 1 g PO ACHS 02/22/19 02/22/19 History Family History Family History of: Bipolar (Mother) Family Mental Health History Comment: Brother ADHD, another brother autism Alcohol History Hx of Alcohol Use Over the Past 12 Months: Yes Occasional social drinking Smoking Use Have You Smoked or Used Tobacco Products in the Last 30 Days: Yes tobacco type: cigarettes Smoking Status: Current some day smoker Substance History Hx of Prescription Med Misuse Over the Past 12 Months: Yes (Wellbutrin overdose) Hx of Over the Counter Med Misuse Over the Past 12 Months: No Hx of Inhalent Misuse Over the Past 12 Months: No Hx of Organic Substance Use Over the Past 12 Months: Yes (Marijuana use 1 month ago) Hx of Illegal Substances/Street Drug Use Over Past 12 Months: No Problems as a Result of Past Substance Use: Attempted Suicide Personal History Living Arrangements: Home Living Arrangements Comments: [place] with boyfriend of 9 years. Mother, stepfather, and 2 brothers lives in [place]. Has 2 biological siblings and 4 step siblings. Father lives in [place] Childhood: Grew up in [place], difficult childhood as father addict, left family when patient was 12y/o, and parents then . 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 Beliefs That Will Affect Care: None marital status: single Current Living Situation: Significant Other current occupational status: employed Feels Safe at Home: Yes Smoking Status: Light tobacco smoker Tobacco Type: cigarettes ; Cigarettes Per Day: FEW MONTH ; Hx Alcohol Use: Yes Alcohol type: wine Alcohol Intake Frequency Comment: occasionally Hx Substance Use: No Review of Systems Review of Systems: All systems reviewed & are unremarkable except as noted in HPI & below lethargy, stomachache Physical Exam Psychiatric: Orientation: alert, oriented x 3 and cooperative Apperance: appropriately dressed and appeared stated age Eye Contact: + fair eye contact Motor Behavior: steady gait and station and no abnormal motor movements Speech: normal rate/rhythm/volume of speech Affect: + depressed affect, + anxious affect and + tearful affect Mood: + depressed mood and + anxious mood Thought Process: goal directed thought process Thought Content: reality based without delusions Suicidal Thoughts: denies suicidal thoughts but admits to intentional overdose just prior to presentation with intent to harm herself Homicidal Thoughts: denies homicidal thoughts Hallucinations: no auditory hallucinations and no visual hallucinations Cognition: recent memory grossly intact, remote memory grossly intact, attention grossly intact and language grossly intact Estimated Intelligence: consistent with education level Insight: + fair insight Judgement: + fair judgement Results & Data Current Inpatient Medications Current Inpatient Medications: Current Inpatient Medications Acetaminophen (Tylenol) 650 mg PO Q4H PRN PRN Reason: Headache or Minor Fever Stop: 03/24/19 12:47 Al Hydrox/Mg Hydrox/Simethicone (Maalox) 30 ml PO Q4H PRN PRN Reason: GI Upset Stop: 03/24/19 12:47 Bismuth Subsalicylate (Kaopectate) 15 ml PO PRN PRN PRN Reason: Loose Stool Stop: 03/24/19 12:47 Hydroxyzine HCl (Vistaril) 25 mg PO Q4H PRN PRN Reason: Anxiety Stop: 03/24/19 12:47 Hydroxyzine HCl (Vistaril) 50 mg PO HSZ PRN PRN Reason: Insomnia Stop: 03/24/19 12:47 Magnesium Hydroxide (Milk Of Magnesia) 30 ml PO DAILY PRN PRN Reason: Constipation Stop: 03/24/19 12:47 Non-Formulary Medication (Drospirenone-Ethinyl Estradiol) 1 tab PO DAILY OPAL Stop: 03/25/19 08:59 Sodium Chloride ([place] Nasal) 1 - 2 sprays NA PRN PRN PRN Reason: Nasal Dryness/Congestion Stop: 03/24/19 12:47 CPT Code CPT Code Initial Hospital Care: [id number]
[2019-02-23] MEDS: ETHINYL ESTRADIOL PO SCH (07:44)
[2019-02-23] MEDS: DROSPIRENONE PO SCH (07:44)
--- NOTE | 2019-02-23 17:23 | Psychiatric Progress Note ---
Date of Service February 23, 2019 Impression / Recommendations (1) Overdose: 02/22 -patient reports intentional, impulsive overdose on bupropion XL in a suicide attempt, in the context of an argument with her mother. She has medically stabilized after treatment on telemetry. -Work on healthy coping skills, communication, and conflict resolution, as the patient identifies these as her primary needs. -Work on discharge safety plan, and hold family meeting with boyfriend to discuss. Given persistent suicidal ideation and now in attentional overdose, would recommend basic safety measures including that all medications in the home are locked and secured, and confirm with boyfriend that firearms are secure and the patient cannot access them. (2) Depression: 02/22 -discussed diagnosis, including that although the patient does not meet criteria for hypomania or davie, she does seem to have an atypical depression and felt more meza on sertraline and bupropion XL (although thinks she had a good response to them when she took both of these medications as a teenager). She does have a family history of bipolar disorder in her mother. -Wellbutrin discontinued on the medical floor status post overdose. Will not resume, as worsened mood. -Discussed other medication options, including a trial of a different SSRI such as escitalopram, or a trial of a mood stabilizer (specifically discussed lamotrigine). At this time, she is not sure whether she wants to try another medication, but we will continue to discuss and educate. -Patient psychiatric care and therapy. 02/23 -patient remains unwilling to discuss medication options, wanting to cont inue off medications. It is probably not a bad idea to give her a washout period after the Wellbutrin XL overdose, and she agreed to discuss further as an outpatient. Mood is improving and she is working on coping skills. (3) Anxiety: 02/22 -hydroxyzine as needed for anxiety that does not respond to behavioral/relaxation techniques. -Discussed medication options including SSRI as above and buspirone. Patient does not wish to start any medications now, but will think about it. (4) Positive urinary cytology: 02/22 -UDS with trace ketones, 1+ leukocyte esterase, 10-30 white blood cells, 5-10 red blood cells, > 30 epithelial cells, and 1+ bacteria.Preliminary culture results showed pinpoint growth; re-incubating. Asymptomatic so treatment not indicated. Follow-up on culture results. (5) Hypokalemia: 02/22 -potassium was 3.3 on admission, but improved to 3.9 today. Encourage good nutrition. Inventory Assets Strengths: Stable housing, employed Needs: Healthy coping skills, outpatient treatment Risk Factors Assessment Male: No : Yes Do You Have Access To A Gun?: No (BF has guns but they are locked and she doesn't have access) Health Problems: No Mental Health Diagnoses: Yes Substance Use Disorders: No Previous Attempt: No Family History of Suicide: No Previous Psychiatric Hospitalization: No Hopelessness: No Smoker: No Protective Factors Assessment Anglican Beliefs: No : No Responsible for Young Children: No Employed: Yes Stable Relationships: Yes Supportive Family: Yes Good Rapport with Provider: Yes Interval History Identifying Information SONIYA FREEDMAN is a 23-year-old F who currently lives in [place], has a history of depression treated by her PCP, and was admitted on 02/22/2019 on a 201 voluntary commitment for an overdose on Wellbutrin. Chief Complaint "Better". Review of Systems Sleep Information Total Hours of Sleep: 7.5 Sleep Comments: pt on q-15 minute checks Meal Information Percent Meal Consumed - Breakfast: 75 Percent Meal Consumed - Lunch: 90 Percent Meal Consumed - Dinner: 100 Subjective Subjective Patient was seen & assessed and interval progress reviewed with nursing and social work. She reports her mood is "better," but mildly anxious, related to worrying about missing time at work and people asking where she is when she returns. She says she slept "really well," which is surprising and has helped improve mood. Appetite remains poor, has to force herself to eat. She denies suicidal thoughts and feels safe here. She is looking forward to a meeting with her boyfriend tomorrow and thinks it will be helpful. She states she still does not want to take medication, wants to focus on coping skills and therapy, but will reconsider medications as an outpatient if needed. States her mood feels more stable and thoughts are clear since stopping Wellbutrin. Physical Exam Psychiatric Orientation: alert and cooperative Apperance: appropriately dressed, appropriately groomed and appeared stated age Eye Contact: + fair eye contact Motor Behavior: steady gait and station and no abnormal motor movements Speech: normal rate/rhythm/volume of speech Affect: + depressed affect and + anxious affect But reactive and appropriate "Better." Thought Process: goal directed thought process Thought Content: reality based without delusions Suicidal Thoughts: denies suicidal thoughts Homicidal Thoughts: denies homicidal thoughts Hallucinations: no auditory hallucinations and no visual hallucinations Cognition: recent memory grossly intact, attention grossly intact and language grossly intact Insight: + fair insight Judgement: + fair judgement Vital Signs (Past 24 Hours) Last Vital Signs Temp 36.9 C 02/23/19 07:36 Pulse 98 H 02/23/19 07:36 Resp 18 02/23/19 07:36 BP 118/79 02/23/19 07:36 Results & Data Current Inpatient Medications Current Inpatient Medications: Current Inpatient Medications Acetaminophen (Tylenol) 650 mg PO Q4H PRN PRN Reason: Headache or Minor Fever Stop: 03/24/19 12:47 Al Hydrox/Mg Hydrox/Simethicone (Maalox) 30 ml PO Q4H PRN PRN Reason: GI Upset Stop: 03/24/19 12:47 Bismuth Subsalicylate (Kaopectate) 15 ml PO PRN PRN PRN Reason: Loose Stool Stop: 03/24/19 12:47 Hydroxyzine HCl (Vistaril) 25 mg PO Q4H PRN PRN Reason: Anxiety Stop: 03/24/19 12:47 Hydroxyzine HCl (Vistaril) 50 mg PO HSZ PRN PRN Reason: Insomnia Stop: 03/24/19 12:47 Magnesium Hydroxide (Milk Of Magnesia) 30 ml PO DAILY PRN PRN Reason: Constipation Stop: 03/24/19 12:47 Drospirenone/Ethinyl Estradiol Non-Formulary Patient's Own Med 1 ea PO DAILY OPAL Stop: 03/25/19 08:59 Last Admin: 02/23/19 07:44 Dose: 1 ea Documented by: Sodium Chloride ([place] Nasal) 1 - 2 sprays NA PRN PRN PRN Reason: Nasal Dryness/Congestion Stop: 03/24/19 12:47 Mental Health & Subst Abuse Tx Data Warehousing Specialist Name of Data Warehousing Specialist: n/a Post Discharge Appointments Primary Care Physician Name Of Family Doctor: [facility] - Dr. Nieves Primary Care Provider Appointment Comment: [address], [place] [address] Contact Information Discharge Discharge Address: [address] [place] [address], [address], [place] [address] CPT Code CPT Code 02053 (1) Overdose Encounter type: initial encounter Injury intent: intentional self-harm Qualified Code(s): T50.902A - Poisoning by unspecified drugs, medicaments and biological substances, intentional self-harm, initial encounter (2) Depression Depression Type: unspecified Qualified Code(s): F32.9 - Major depressive disorder, single episode, unspecified
[2019-02-24] MEDS: DROSPIRENONE PO SCH (07:55)
[2019-02-24] MEDS: ETHINYL ESTRADIOL PO SCH (07:55)
--- NOTE | 2019-02-24 11:20 | Discharge Summary ---
Date of Service February 24, 2019 History of Present Illness The patient initially presented to the ER 02/21/2019 after overdosing on 15-20 tablets of bupropion XL about 45 minutes prior. This occurred after an argument with her family, and she said that she intended to harm herself. Her drug screen was positive for MDMA and UA showed trace ketones, 1+ leukocyte esterase, 10-30 white cells, 5-10 red cells, >30 epithelial cells, and 1+ bacteria. Culture showed pinpoint growth and is re-incubating. Labs otherwise unremarkable. EKG showed sinus tachycardia with a rate of 116 and QTC of 467. She was admitted to telemetry for cardiac monitoring, and seen by Dr. watkins on the psychiatry consult service yesterday. She reported recent stress including wanting to attend nursing school, but unable due to financial barriers. She had an argument with her mother prior to presentation and impulsively took the overdose to end her life, but immediately regretted it, told her boyfriend, and came to the ER. She experienced nausea and chest discomfort. Her boyfriend of 9 years was present and stated that in the past 3 months she has had more mood swings between happy, low, and irritable. Sleep has been disrupted, and energy low. She was also seen in our ER on 01/21/2019 for worsening depression and suicidal ideation with a plan to overdose on NyQuil. She initially expressed an interest in inpatient treatment, but changed her mind and was discharged home. She planned to stay with her mother who was going to arrange outpatient treatment. On my assessment today, she was seen with Chetan Joya, MS2 and Leodan Saxena, MS2, with her permission. She reports no psychiatric history until about a month and a half ago, when she went to her PCP and was started on Wellbutrin XL. She is not sure what she was diagnosed with. She reports worsening mood for months, with low mood, crying spells, disrupted sleep, low energy, decreased appetite with 15-20lb weight loss in the past 3 months. She also reports anxiety which she describes as "get worked up," and thinks this leads to depression. She describes chest pain and SOB, racing thoughts, and feeling on edge which occurs daily. Describes herself as a worrier and "always an anxious kid." Worries about finances and "stability in general" as her family was homeless a lot when she was growing up and she doesn't want this to happen. Other stressors include that her father left the family years ago due to his addictions, although he is now working on it and they are talking; increased work responsibilities bank, and financial concerns. She reports suicidal thoughts which worsened over the past month and a half, with thoughts to overdose. She notes that her overdose was impulsive and occurred in the context of an argument with her mother whom she describes as unstable and difficult. Patient had previously been living with mother and and was contributing financially, but can no longer afford to do that as moved in with boyfriend 4 months ago. Notes mother also doesn't like her boyfriend. She doesn't think she would try to hurt herself again as her experience yesterday (how she felt after the OD) "was terrible." Has now had 2 antidepressant trials as an adult, and both times felt moods were more unstable. Prior to starting meds, reports mild mood swings, now feels "upset over everything." Denies manic symptoms, other than irritability, often at work or with boyfriend. Denies anger outbursts, but reports "getting angry" and "shutting down, want to be left alone." Denies panic attacks, OCD symptoms, hallucinations, PTSD symptoms. Denies h/o self injury. Physical Exam Psychiatric Orientation: alert and oriented x 3 Apperance: appropriately groomed Eye Contact: good eye contact Motor Behavior: no abnormal motor movements Speech: normal rate/rhythm/volume of speech Affect: euthymic affect (Mildly anxious.) "Good. Much better." Thought Process: goal directed thought process, linear/logical thought process and clear/coherent thought process Thought Content: reality based without delusions Suicidal Thoughts: denies suicidal thoughts Homicidal Thoughts: denies homicidal thoughts Hallucinations: no auditory hallucinations Cognition: recent memory grossly intact, remote memory grossly intact, attention grossly intact and language grossly intact Estimated Intelligence: average estimated intelligence Insight: + fair insight Judgement: good judgement Vital Signs (Past 24 Hours) Last Vital Signs Temp 36.7 C 02/24/19 06:52 Pulse 96 H 02/24/19 06:52 Resp 18 02/24/19 06:52 BP 114/75 02/24/19 06:52 Principal Diagnosis Depression. Psychiatric Data During the course of hospitalization the patient was offered various modalities of psychiatric treatment and education. She participated fairly actively in individual, group, and activity therapies. The patient explained that although she has been feeling depressed, at least intermittently, for some time now, the suicide attempt was precipitated by several factors, including an argument with her mother. The patient explains that her mother suffers from bipolar disorder and although her bipolar symptoms are generally under pretty good control, the patient has residual resentment from childhood experiences with her mother during manic episodes. The patient has, "I pretty much was the parent when I was being raised, and I love my mother, but I really get frustrated with her." She explains that she immediately regretted the suicide attempt (overdose of bupropion) and deeply regretted the behavior. The patient reported that her thoughts of suicide resolved quickly, and after feeling "really sick and shaky" from the overdose she resolved to never repeat the behavior. She also reports that she has had no previous history of suicide attempts. In addition to depression, the patient experiences some associated anxious distress. She told us that she would like to take a "break" from psychiatric medications and, in view of her recent overdose of bupropion, we were inclined to agree with her. She worked with staff in developing a safety plan for community reentry, and she was able to tell us during the discharge evaluation the details of the plan. She is not closed to the idea of further use of psychiatric medications, and it was suggested that she may want to consider a selective serotonin reuptake inhibitor given her co-occurring depression and anxiety. Her preference was to wait until she sees an outpatient provider before restarting medications. The patient was found to be future oriented, consistently denied suicidal thoughts, and her affect was fairly bright and positive. Day of Discharge Assessment On the day of discharge, the patient was found to be appropriately dressed and groomed. She was fully cooperative with the interview and interacted appropriately with the examiner. Her speech was spontaneous and was delivered at a normal rate and rhythm. She described her mood as "much better" and "good." The patient's affect was somewhat anxious, but generally euthymic. She was fairly animated and smiled appropriately several times during the encounter. The patient's thought processes demonstrated tight associations. Her thought content was devoid of any delusional material and the patient was both future oriented and able to accurately describe her plan for community safety ("safety plan."). The patient's thought processes demonstrated tight associations and logical thinking. There was no evidence of any delusional material and the patient's thought content. As noted above, the patient reports that her suicidal thoughts of resolved and she states clearly that she does not have any lingering suicidal plan or intent. She also demonstrates that she is future oriented, focuses on goals for the future, and commits to safety in the community. There is no evidence of any homicidal thoughts. The patient's insight is assessed as being fair and her judgment is assessed as being good. She has above average intelligence. 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 Risk Factors Assessment Male: No : Yes Do You Have Access To A Gun?: No (BF has guns but they are locked and she doesn't have access) Health Problems: No Mental Health Diagnoses: Yes Substance Use Disorders: No Previous Attempt: No Family History of Suicide: No Previous Psychiatric Hospitalization: No Hopelessness: No Smoker: No Protective Factors Assessment Temple Beliefs: No : No Responsible for Young Children: No Employed: Yes Stable Relationships: Yes Supportive Family: Yes Good Rapport with Provider: Yes Hospital Course (1) Overdose: 02/22 -patient reports intentional, impulsive overdose on bupropion XL in a suicide attempt, in the context of an argument with her mother. She has medically stabilized after treatment on telemetry. -Work on healthy coping skills, communication, and conflict resolution, as the patient identifies these as her primary needs. -Work on discharge safety plan, and hold family meeting with boyfriend to discuss. Given persistent suicidal ideation and now in attentional overdose, would recommend basic safety measures including that all medications in the home are locked and secured, and confirm with boyfriend that firearms are secure and the patient cannot access them. 02/24 -The patient has developed and is fully conversant with her safety plan. -She notes that suicidal thoughts have resolved and she notes that she will notify friends or family if suicidal plan or intent develop in the future. -Her plan for outpatient treatment includes continuation of her work to develop improved individual coping strategies. (2) Depression: 02/22 -discussed diagnosis, including that although the patient does not meet criteria for hypomania or davie, she does seem to have an atypical depression and felt more meza on sertraline and bupropion XL (although thinks she had a good response to them when she took both of these medications as a teenager). She does have a family history of bipolar disorder in her mother. -Wellbutrin discontinued on the medical floor status post overdose. Will not resume, as worsened mood. -Discussed other medication options, including a trial of a different SSRI such as escitalopram, or a trial of a mood stabilizer (specifically discussed lamotrigine). At this time, she is not sure whether she wants to try another medication, but we will continue to discuss and educate. -Patient psychiatric care and therapy. 02/23 -patient remains unwilling to discuss medication options, wanting to continue off medications. It is probably not a bad idea to give her a washout period after the Wellbutrin XL overdose, and she agreed to discuss further as an outpatient. Mood is improving and she is working on coping skills. 02/24/19 -The patient reports that her mood is improved, but she recognizes that she continues to have symptoms of depression and that these symptoms can wax and wane. She tells us that she is not opposed to the idea of antidepressant medications, but would prefer to wait to restart antidepressant medication treatment for the time being, in view of her recent overdose on bupropion. She will discuss antidepressant medication further with her outpatient psychiatrist, during her scheduled intake appointment. -We discussed the various types of antidepressant medications that can be used, not only for depression but also for anxious distress associated with depression and generalized anxiety. (3) Anxiety: 02/22 -hydroxyzine as needed for anxiety that does not respond to behavioral/relaxation techniques. -Discussed medication options including SSRI as above and buspirone. Patient does not wish to start any medications now, but will think about it. 02/24 -As above, we have discussed the anticipated benefit of medication such as selective serotonin reuptake inhibitors in managing both depression and anxiety. The patient's current choice is to remain medication free, at least until starting treatment on an outpatient basis next week. (4) Positive urinary cytology: 02/22 -UDS with trace ketones, 1+ leukocyte esterase, 10-30 white blood cells, 5-10 red blood cells, > 30 epithelial cells, and 1+ bacteria.Preliminary culture results showed pinpoint growth; re-incubating. Asymptomatic so treatment not indicated. Follow-up on culture results. /6 -Resolved. (5) Hypokalemia: 02/22 -potassium was 3.3 on admission, but improved to 3.9 today. Encourage good nutrition. 9/6 -Resolved. Mental Health & Subst Abuse Tx Psychiatrist Name of Psychiatrist: [facility] Ruby Ayoub Psychiatrist's Date of Appointment with Psychiatrist: 03/02/19 Time of Appointment with Psychiatrist: 10:00 a.m. Psychiatric Appointment Comment: [address] [place] [id number] Therapist Name of Therapist: [employer] Therapist's Date of Therapist Appointment: 02/27/19 Time of Therapist Appointment: 3:00 p.m. Therapy Appointment Comment: [address] [place] [address] Circus Agent Name of Circus Agent: n/a Post Discharge Appointments Primary Care Physician Name Of Family Doctor: [facility] - Dr. Nieves Primary Care Time of Appointment with PCP: Follow up as needed Provider Appointment Comment: [address], [place] [address] Contact Information Discharge Discharge [address]: [address] [place] [id number] Discharge Plan Discharge Items Patient Disposition: Home - Self-Care Reason For Visit: OVERDOSE Discharge Diagnosis: Depression Discharge Goals: Improve disease control, Improve function and Learn about illness Activity: Resume your previous activity Non-emergency contact: Primary Care Provider, Psychiatrist and Therapist Call non-emergency contact if: you have any medication questions and your symptoms worsen Follow-up/Referrals: Anneliese Nieves DO [Primary Care Provider] - Diet: Regular Addtl Provider Instructions: Use your Safety Plan. Continue in outpatient treatment as long as recommended by your outpatient treatment team, even if you are feeling wel. Prescriptions: Continued drospirenone-ethinyl estradiol 3-0.02 mg tablet 1 tab PO DAILY RF: 0 omeprazole 40 mg Capsule,Delayed Release(Dr/Ec) 40 mg PO DAILY RF: 0 sucralfate 1 gram Tablet 1 g PO ACHS RF: 0 Discontinued bupropion HCl [Wellbutrin XL] 150 mg Tablet Extended Release 24 Hr 150 mg PO QAM RF: 0 Stand-Alone Forms: [employer] [facility] Discharge Orders: Discharge Order (Routine); Ordered 02/24/19 Ordered By: Rafael Lloyd Admission Data Admit Date/Time: 02/22/19 12:48 Attending Provider: Maddison Kuo Admit Provider: Maddison Kuo Primary Care Provider: Anneliese Nieves Service: Psychiatry Other Interventions: Discharge Summary Assessment (RN) Last Done: 02/24/19 11:21 PSY Interdisciplinary Discharge Planning Last Done: 02/24/19 11:22 Pending Studies at Discharge: No DC Date/Time DO NOT enter until pt leaves facility: 02/24/19 11:52
== END 2019-02-24 11:52 | disposition home or self-care (01) | DRG 881 ==
LOC: 3S 12:55